=== PATIENT | male | born 1985 | race African-American/Black ===

== ENCOUNTER 2018-09-27 02:22 | Emergency (ER) | payer OTHER ==
[2018-09-27] MEDS: methylPREDNISolone INJ 125 MG/2 ML VIAL (J2930) IM (03:30)
== END 2018-09-27 04:29 | disposition home or self-care (01) ==
LOC: M ED 02:22
DX: K12.2 Cellulitis and abscess of mouth (principal)
CPT/HCPCS: J2930

== ENCOUNTER → 2018-11-02 | Outpatient (CLI) | payer OTHER ==
[~2018-11-02] MED LIST: CONRAY-43 43% 50ML VIAL (Q9960) As Ordered ONE; PRED20TA PO; PROHANCE 279.3MG/ML 15ML VIAL (A9576) As Ordered ONE
--- NOTE | 2018-11-02 11:31 | REP ---
MR ARTHROGRAM LEFT SHOULDER: TECHNIQUE: Axial T2 fat sat, coronal oblique T1, T2 fat sat, post arthrogram axial T1 fat sat, proton density, coronal oblique T1 fat sat, T2 sat, sagittal oblique T2 fat sat, ABER T1 fat sat. The supraspinatus tendon demonstrates ill-defined high signal on T2-weighted images compatible with tendinopathy/tendinitis. There is no evidence of rotator cuff tendon tear. There are mild hypertrophic degenerative changes of the acromioclavicular joint. There is mild subchondral marrow edema at the joint. Acromion is type 2. Biceps tendon is within the bicipital groove without tenosynovitis. There is a Hill-Sachs deformity of the superolateral humeral head. 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 Deltoid muscle is unremarkable. Biceps labral complex is intact. There is diffuse tear of the inferior labrum. It appears truncated. There also appears to be an old Bankart lesion which has filled in with granulation tissue. There is diffuse moderate chondromalacia at the glenohumeral joint with a moderate sized spur of the medial inferior humeral head. There is mild subchondral cystic change and marrow edema in the bony glenoid. There is a small joint effusion. IMPRESSION: Supraspinatus tendinopathy/tendinitis with no evidence of rotator cuff tendon tear. Mild hypertrophic degenerative changes of the acromioclavicular joint. There is a prominent Hill-Sachs deformity of the humeral head. 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 There appears to be an old Bankart lesion which has filled in with granulation tissue. There is diffuse tear of the inferior labrum which appears truncated. There is diffuse moderate chondromalacia and arthritic change at the glenohumeral joint with subchondral marrow edema and cystic change in the bony glenoid. Electronically Signed by Vincent Luevano MD 11/02/2018 12:22 P
--- NOTE | 2018-11-02 17:10 | REP ---
Procedure: Left shoulder arthrogram The procedure was performed under the direct supervision of Dr. Luevano. History: Left shoulder pain The benefits and risks including but not limited to pain, infection, bleeding and anaphylaxis were explained to the patient and informed consent was obtained. Technique: The left glenohumeral joint space was localized using fluoroscopic guidance. The skin was prepped and draped in a sterile fashion. 1% lidocaine was used as a local anesthetic. Using fluoroscopic guidance a 22 gauge spinal needle was inserted and advanced into the joint. 0.5 ml of Conray 43 was injected to verify placement. 11 ml of a solution containing 20 ml of sterile saline and 0.15 ml of ProHance was injected into the joint. The needle was removed and the patient was taken to MRI for postprocedural imaging. The the patient tolerated the procedure well and there were no immediate complications. Less than 6 seconds of fluoro time was utilized for this procedure. Reviewed by VERA Álvarez 11/02/2018 04:57 P Electronically Signed by Vincent Luevano MD 11/02/2018 05:01 P
== END ==
LOC: M RADPRO 06:49
PROVIDERS: ATTEND Neuromusculoskeletal Medicine & OMM
DX: M75.82 Other shoulder lesions, left shoulder (principal); M19.012 Primary osteoarthritis, left shoulder; S43.015A Anterior dislocation of left humerus, initial encounter; X58.XXXA Exposure to other specified factors, initial encounter; Y92.89 Other specified places as the place of occurrence of the external cause; M94.212 Chondromalacia, left shoulder
CPT/HCPCS: 23350; 73223; 77002; A9576; Q9960

== ENCOUNTER 2019-04-15 21:53 | Emergency (ER) | payer OTHER ==
[~2019-04-15] VITALS: Ht 195.6 cm; Wt 99.1 kg
[~2019-04-15 21:53] MED LIST changes: -CONRAY-43 43% 50ML VIAL (Q9960) As Ordered ONE; -PROHANCE 279.3MG/ML 15ML VIAL (A9576) As Ordered ONE
[2019-04-15] MEDS ORDERED: AMLO10TA5 PO (22:03)
[2019-04-16] MEDS ORDERED: GI COCKTAIL 50ML BTL(HYOSCYAMINE/MAALOX/LIDOCAINE VISCOUS)(1:3:1) PO ONE (00:45)
[2019-04-16] MEDS ORDERED: KETOROLAC 60 MG/2 ML VIAL (J1885) IM ONE (00:45)
--- NOTE | 2019-04-16 01:13 | REPVR ---
EXAM: CT Head Without Contrast EXAM DATE/TIME: 04/16/2019 12:34 AM CLINICAL HISTORY: 33 years old, male; Pain; Headache not specified; Additional info: Severe headache TECHNIQUE: Imaging protocol: Axial computed tomography images of the head without contrast. Radiation optimization: All CT scans at this facility use at least one of these dose optimization techniques: automated exposure control; mA and/or kV adjustment per patient size (includes targeted exams where dose is matched to clinical indication); or iterative reconstruction. COMPARISON: No relevant prior studies available. FINDINGS: Brain: No CT evidence of acute intracranial hemorrhage or acute territorial infarction. No significant mass effect or midline shift. Basal cisterns patent. Ventricles: Normal in size and configuration. Bones/joints: No acute osseous abnormality. Sinuses: Grossly unremarkable. Mastoid air cells: Grossly unremarkable. Soft tissues: Grossly unremarkable. IMPRESSION: No CT evidence of acute intracranial pathology. Electronically signed by: Dariusz Mayorga On 04/16/2019 01:13:33 AM
[2019-04-16] MEDS ORDERED: PROT1TAB2 PO (01:36)
[2019-04-16 01:55] VITALS: BP 137/75
== END 2019-04-16 02:00 | disposition home or self-care (01) ==
LOC: M ED 21:53
DX: K21.0 Gastro-esophageal reflux disease with esophagitis (principal); R51 Headache; I10 Essential (primary) hypertension; Z79.899 Other long term (current) drug therapy
CPT/HCPCS: 70450; 96372; 99284; J1885

== ENCOUNTER → 2019-06-07 | Outpatient (CLI) | payer OTHER ==
[~2019-06-07] MED LIST changes: +AMLO10TA5 PO; +PROT1TAB2 PO
--- NOTE | 2019-06-07 08:46 | REP ---
CT right shoulder without contrast: History: Recurrent dislocation. Comparison MRI study April 30, 2019. Technique: Helical scanning is acquired and 3 mm axial images are reformatted. Coronal and sagittal MPR images are generated. CT findings: There is moderate glenohumeral osteoarthritic spurring. There is a Hill-Sachs impaction fracture deformity in the superolateral humeral head which is old. This is associated with a 1.1 cm subcortical cyst formed in the humeral head. The glenohumeral and acromioclavicular joints are normally aligned. 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 There is spurring of the posterior aspect of the glenoid labrum. No other scapular fracture is evident. Periarticular soft tissues are otherwise unremarkable. 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 Electronically Signed by Elmer Mcgee MD 06/07/2019 11:16 A
== END ==
LOC: M RAD 07:38
PROVIDERS: ATTEND Family Medicine
DX: M24.411 Recurrent dislocation, right shoulder (principal); M19.011 Primary osteoarthritis, right shoulder